=== PATIENT | female | born 1990 | race Caucasian/White ===

== ENCOUNTER 2022-08-04 13:30 | Outpatient (CLI) | payer OTHER, SELFPAY | END 2022-08-04 13:31 | disposition home or self-care (01) | PROVIDERS: PCP Family Medicine; Visit Provider Registered Nurse | DX: R07.89 Other chest pain (principal) | CPT/HCPCS: 84484; 85379 ==

== ENCOUNTER 2024-11-07 23:35 | Emergency (ER) | payer OTHER, SELFPAY ==
--- OUTSIDE RECORDS SUMMARY | 2024-11-07 23:38 | XMS_ITS | Clinical Summary ---
Author Organization [facility] [facility] Address [address] [place] [address] Care Team Providers Care Supervisor Of Operations Name Role Phone Fany Hamilton Primary Care Provider [phone] Dawood Stinson MD Unavailable [phone] Allergies No known active allergies Medications blood-glucose meterIndication s:Type 2 diabetes mellitus without complication, without long-term current use of insulin (HC) As directed. Dispense meter, test strips, lancets covered by pt ins. E11.9 NIDDM type II - Test 1 time/day 1 Each 09/07/19 23 Active blood sugar diagnostic (Blood Glucose Test) stripIndication s:Type 2 diabetes mellitus without complication, without long-term current use of insulin (HC) Test 1 times per day. 100 Each 09/08/19 23 Active CPAPIndications :ARMANDO (obstructive sleep apnea) CPAP machine for home use at pressure 5-15cmw, nasal mask x1/3month with nasal cushion x2/mo 1 Each 11 05/01/19 24 Active ferrous sulfate 325 mg delayed release tabletIndicatio ns:Iron deficiency anemia, unspecified iron deficiency anemia type Take 1 Tablet (325 mg) by mouth once daily with a meal. 90 Tablet 3 04/22/20 24 Active venlafaxine 75 mg cp24 Extended-Releas e capsuleIndicati ons:Generalized anxiety disorder,Curren t moderate episode of major depressive disorder without prior episode (HC) Take 1 Capsule (75 mg) by mouth once daily with a meal. 90 Capsule 3 08/06/19 25 Active pen tirzepatide 10 mg/0.5 mL penIndications: Type 2 diabetes mellitus without complication, without long-term current use of insulin (HC) Inject 10 mg subcutaneous once weekly. Start after 4 weeks of 7.5 mg dosing, continue as maintenance dose 6 mL 1 09/27/19 25 Active metFORMIN 1,000 mg tabletIndicatio ns:Type 2 diabetes mellitus without complication, without long-term current use of insulin (HC) Take 1 Tablet (1,000 mg) by mouth once daily with a meal. 180 Tablet 1 09/27/19 25 Active clotrimazole-be tamethasone 1%-0.05% creamIndication s:Intertriginou s candidiasis Apply topically to affected area(s) two times daily. 45 g 1 09/27/19 25 Active levothyroxine (SYNTHROID) 200 mcg tabletIndicatio ns:Hypothyroidi sm due to Josue's thyroiditis Take 1 Tablet (200 mcg) by mouth once daily. 90 Tablet 2 11/05/19 25 Active norgestimate-et hinyl estradiol (0.25-35 mg-mcg) (ORTHO-CYCLEN) 0.25-0.035 mg tabletIndicatio ns:Menorrhagia with regular cycle Take 1 Tablet by mouth once daily. 84 Tablet 3 11/07/19 25 Active cephalexin 500 mg capsuleIndicati ons:Cellulitis of left abdominal wall Take 2 Capsules (1,000 mg) by mouth two times daily for 7 days. 28 Capsule 11/07/19 25 025 Active lancetsIndicati ons:Type 2 diabetes mellitus without complication, without long-term current use of insulin (HC) As directed. Test 1 times per day. 100 Each 09/08/19 23 025 Discontinu ed(*Med complete/R egimen complete/L evel of care change) gabapentin (NEURONTIN) 600 mg tabletIndicatio ns:Peripheral sensory neuropathy Take 1 Tablet (600 mg) by mouth three times daily. 270 Tablet 1 04/14/20 24 025 Discontinu ed(*Med complete/R egimen complete/L evel of care change) cholecalciferol (VITAMIN D3) 2,000 unit capsuleIndicati ons:vitamin D deficiency Take 2,000 units by mouth once daily. 025 Discontinu ed(*Med complete/R egimen complete/L evel of care change) hydrOXYzine pamoate (VISTARIL) 25 mg capsuleIndicati ons:Generalized anxiety disorder Take 2 Capsules (50 mg) by mouth at bedtime if needed for Anxiety (sleep). 07/05/19 25 025 Discontinu ed(*Med complete/R egimen complete/L evel of care change) tirzepatide 7.5 mg/0.5 mL penIndications: Type 2 diabetes mellitus without complication, without long-term current use of insulin (HC) Inject 7.5 mg subcutaneous once weekly for 4 doses. Start after 4 weeks of 5 mg dosing 2 mL 09/27/19 25 025 tirzepatide 5 mg/0.5 mL penIndications: Type 2 diabetes mellitus without complication, without long-term current use of insulin (HC) Inject 5 mg subcutaneous once weekly for 4 doses. 2 mL 09/27/19 25 025 fluconazole 150 mg tabletIndicatio ns:Intertrigino us candidiasis Take 1 tablet every 3 days for total of 3 doses 3 Tablet 09/27/19 25 025 Discontinu ed(*Med complete/R egimen complete/L evel of care change) levothyroxine 175 mcg tabletIndicatio ns:Hypothyroidi sm due to Josue's thyroiditis Take 1 Tablet (175 mcg) by mouth before breakfast. 90 Tablet 3 09/30/19 25 025 Discontinu ed(*Medica tion adjustment ) Active Problems Problem Noted Date Diagnosed Date MDD (major depressive disorder), single episode, severe 07/08/2024 Current moderate episode of major depressive disorder without prior episode 07/02/2024 Vitamin D deficiency 06/27/2024 Peripheral sensory neuropathy 01/10/2024 Pap smear for cervical cancer screening 01/12/20 23 Overview (01/11/2023): 12/2022 NIL/HPV Negative Plan: Pap and HPV due 12/2027 Morbid obesity with BMI of 45.0-49.9, adult 12/22 Type 2 diabetes mellitus wit hout complication, without long-term current use of insulin 01/04/2023 Generalized anxiety disorder 10/13/2019 ARMANDO 03/21/2018 AHI- 24.6 10/13/2019 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 Family history of early CAD 12/09/2013 Resolved Problems Problem Noted Date Diagnosed Date Resolved Date Hyperprolactinemia 06/27/2024 Morbid obesity 07/05/2021 10/08/2023 Encounters Date Type Department Care Team Description 11/06/2024 9:30 AM CDT Office Visit [facility] [address] [place] [address] Fany Hamilton PA Menses Problem (Very painful periods lately-discuss antidepressant and if is causes difficulty getting -possible rash from mounjaro injection) 11/06/2024 Travel 11/04/2024 9:15 AM CDT Office Visit [facility] [address] [address] Dawood Stinson MD 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) 11/04/2024 Travel 11/02/2024 Travel 10/30/2024 Travel 10/16/2024 8:46 AM CDT - 10/16/2024 11:59 PM CDT Hospital Encounter [facility] [address] [place] [address] 10/16/2024 Travel 10/15/2024 8:42 AM CDT - 10/15/2024 11:59 PM CDT Hospital Encounter [facility] [address] [place] [address] 10/14/2024 8:44 AM CDT - 10/14/2024 11:59 PM CDT Hospital Encounter [facility] [address] [place] [address] 10/14/2024 Travel 10/09/2024 8:45 AM CDT - 10/09/2024 11:59 PM CDT Hospital Encounter [facility] [address] [place] [address] 10/09/2024 Travel 10/08/2024 8:33 AM CDT - 10/08/2024 11:59 PM CDT Hospital Encounter [facility] [place] [address] 10/07/2024 8:41 AM CDT - 10/07/2024 11:59 PM CDT Hospital Encounter [facility] [address] [place] [address] 10/07/2024 Travel 10/02/2024 9:00 AM CDT - 10/02/2024 11:59 PM CDT Hospital Encounter [facility] [place] [address] 10/02/2024 Travel 10/01/2024 9:00 AM CDT - 10/01/2024 11:59 PM CDT Hospital Encounter [facility] [place] [address] 09/30/2024 8:30 AM CDT - 09/30/2024 11:59 PM CDT Hospital Encounter [facility] [place] [address] 09/30/2024 Travel 09/29/2024 Telephone [facility] [address] [place] [address] Fany Hamilton PA Prior Authorization (tirzepatide 5 mg/0.5 mL pen (APPROVED 08/30/2024 - 09/29/2025)) 09/26/2024 7:30 AM CDT Office Visit [facility] [address] [place] [address] Fany Hamilton PA Diabetes (And A1c) 09/26/2024 Travel 09/25/2024 8:36 AM CDT - 09/25/2024 11:59 PM CDT Hospital Encounter [facility] [place] [address] 09/24/2024 8:44 AM CDT - 09/24/2024 11:59 PM CDT Hospital [facility]counter [facility] [address] [facility] [place] [address] 09/24/2024 Travel 09/23/2024 8:35 AM CDT - 09/23/2024 11:59 PM CDT Hospital [facility]counter [facility] [address] [facility] [place] [address] 09/23/2024 Nurse Triage [facility] [address] [place] [address] Fany Hamilton PA Rash 09/23/2024 Travel 09/18/2024 8:31 AM CDT - 09/18/2024 11:59 PM CDT Hospital Encounter [facility] 200 [facility] [place] [address] 09/18/2024 Travel 09/18/2024 Refill [facility] [address] [place] [address] Fany Hamilton PA Refill Request (Ozempic) 09/17/2024 8:40 AM CDT - 09/17/2024 11:59 PM CDT Hospital Encounter [facility] [address] [facility] [address] 09/16/2024 8:32 AM CDT - 09/16/2024 11:59 PM CDT Hospital Encounter [facility] [address] [facility] [place] [address] 09/16/2024 Travel 09/11/2024 8:31 AM CDT - 09/11/2024 11:59 PM CDT Hospital Encounter [facility] [address] 09/11/2024 Travel 09/10/2024 8:39 AM CDT - 09/10/2024 11:59 PM CDT Hospital Encounter [facility] [address] [facility] [place] [address] 09/09/2024 8:27 AM CDT - 09/09/2024 11:59 PM CDT Hospital Encounter [facility] 200 [facility] [place] [address] 09/09/2024 Travel 09/04/2024 8:42 AM CDT - 09/04/2024 11:59 PM CDT Hospital Encounter [facility] [address] [facility] [place] [address] 09/04/2024 Travel 09/03/2024 8:29 AM CDT - 09/03/2024 11:59 PM CDT Hospital Encounter [facility] [address] [facility] [place] [address] 09/02/2024 8:42 AM CDT - 09/02/2024 11:59 PM CDT Hospital Encounter [facility] [address] [facility] [place] [address] 09/02/2024 Travel 08/28/2024 8:27 AM CDT - 08/28/2024 11:59 PM CDT Hospital Encounter [facility] [address] [facility] [place] [address] 08/28/2024 Travel 08/27/2024 8:40 AM CDT - 08/27/2024 11:59 PM CDT Hospital Encounter [facility] [address] [facility] [place] [address] 08/26/2024 8:45 AM CDT - 08/26/2024 11:59 PM CDT Hospital Encounter [facility] [address] [facility] [address] 08/26/2024 Travel 08/25/2024 3:45 PM CDT Orders Only [facility] [address] [place] [address] Lab 08/24/2024 Travel 08/21/2024 8:44 AM CDT - 08/21/2024 11:59 PM CDT Hospital Encounter [facility] [address] [facility] [place] [address] 08/21/2024 Travel 08/20/2024 11:45 AM CDT - 08/20/2024 11:59 PM CDT Hospital Encounter [facility] [address] [place] [address] 08/20/2024 8:43 AM CDT - 08/20/2024 11:44 AM CDT Hospital Encounter [facility] [address] [place] [address] 08/19/2024 8:36 AM CDT - 08/19/2024 11:59 PM CDT Hospital Encounter [facility] [address] [facility] [place] [address] 08/19/2024 Travel 08/17/2024 Travel 08/17/[address] [address] Fany Hamilton PA Refill Request (Ozempic) 08/14/2024 8:38 AM CDT - 08/14/2024 11:59 PM CDT Hospital Encounter [facility] [address] [place] [address] 08/14/2024 Travel 08/13/2024 9:00 AM CDT - 08/13/2024 11:59 PM CDT Hospital Encounter [facility] [address] [place] [address] 08/12/2024 8:38 AM CDT - 08/12/2024 11:59 PM CDT Hospital Encounter [facility] [address] [place] [address] 08/12/2024 Travel from Last 3 Months Immunizations Immunization Administration Dates Next Due COVID-19 vaccine (Moderna 100mcg/0.5mL) PF, MDV 06/30/2020,06/02/2020 COVID-19 vaccine (Moderna Mic cassandra 50mcg/0.25mL) PF, MDV 03/22/2021 COVID-19 vaccine (Pfizer-Bio NTech 30mcg/0.3mL) 12YO+ BIVALENT PF, MDV 04/27/2022 DTP 03/03/1993, 2,1991,1990 HIB PRP-T (ActHIB,Hiberix) 05/20/1992,1991 ,1991 Hepatitis B (Adult) 12/18/2022 Hepatitis B (Peds) 08/29/1996,08/01/1996 Hepatitis B, Unspecified 08/29/1996,08/01/1996 Influenza Virus, Unspecified 03/22/2021 Influenza, IIV4 04/27/2022,03/22/2021,12/27/2018 MMR 05/20/1992 Oral Polio Vaccine 03/03/1993,1991, 991 Pneumococcal Conj 20-valent (Prevnar 20) 12/18/2022 Tdap 10/13/2019 Family History Medical History Relation Name Comments Hypertension Father Diabetes Maternal Grandmother Thyroid Disease Maternal Grandmother Thyroid Disease Mother Relation Name Status Comments Father Maternal Grandmother Mother Social History Tobacco Use Types Packs/Day Years Used Date Smoking Tobacco: Never Passive Smoke Exposure: Never Smokeless Tobacco: Never Tobacco Cessation:Counseling Given: Yes Alcohol Use Standard Drinks/Week Comments Not Currently 0 (1 standard drink = 0.6 oz pur e alcohol) occ PHQ-2 Answer Date Recorded PHQ-2 TOTAL SCORE 2 10/16/2024 Social Connections Answer Date Recorded Do you often feel lonely or isolated from those around you? 4 07/02/2024 Alcohol Use Answer Date Recorded How often do you have a drink containing alcohol ? 1 01/12/2022 How many drinks containing a lcohol do you have on a typical day when you are drinking? 0 01/12/2022 How often do you have five or more drinks on one occasion? 1 01/12/2022 Financial Resource Strain Answer Date R ecorded Difficulty of Paying Living Expenses 2 06/26/2024 Difficulty of Paying Living Expenses 1 06/26/2024 Food Insecurity Answer Date Recorded Do you worry your food will run out before you are able to buy more? 1 07/02/2024 Transportation Needs Answer Date Record ed Does lack of transportation keep you from medica l appointments? 1 07/02/2024 Does lack of transportation keep you from work, meetings or getting things that you need? 1 07/02/2024 Housing Stability Answer Date Recorded What is your housing situation today? 1 07/02/2024 Interpersonal Safety Answer Date Record ed Are you being hit, kicked, p ushed or yelled at (see row info)? No 07/02/2024 Interpersonal Safety Abuse 12 - 18 Not on file 07/02/2024 Interpersonal Safety Ambulatory Vulnerability No t on file 07/02/2024 Utilities Answer Date Recorded Do you have trouble paying f or utilities (for example, heat, electricity, water, phone)? 1 07/02/2024 Comments No Sex and Gender Information Value Date Recorded Sex Assigned at Not on file Legal Sex Female 2:37 PM CDT Gender Identity Not on file Sexual Orientation Not on file Obstetrics History Para Term AB IAB SAB Ectopic Multiple Livin g Live Births 0 0 0 0 0 0 0 0 0 0 0 Last Filed Vital Signs Vital Sign Reading Time Taken Comments Blood Pressure 131/82 11/06/2024 9:27 AM CDT Pulse 81 11/06/2024 9:27 AM CDT Temperature 36.8 C (98.3 F) 07/17/2024 9:45 AM CDT Respiratory Rate 18 07/17/2024 9:45 AM CDT Oxygen Saturation 100% 11/06/2024 9:27 AM CDT Inhaled Oxygen Concentration - - Weight 129.7 kg (286 lb) 11/06/2024 9:27 AM CDT Height 170.2 cm (5' 7) 07/02/2024 10:13 AM CDT Body Mass Index 44.79 07/02/2024 10:13 AM CDT Plan of Treatment Upcoming Encounters Date Type Department Care Team (Late st Contact Info) Description 12/16/2024 4:00 PM CDT Orders Only [facility] [address] [place] [address] Lab, [place] 02/03/2025 3:55 PM CDT Office Visit [facility] [address] [address] [place] [address] [place], [place] [id number] Health Maintenance Due Date Last Done Comments COVID-19 vaccine series ( season) 2023 04/27/2022, 03/22/2021, 06/30/2020, Additional history exists Influenza Vaccine (#1) 2024 , 03/22/2021, 03/22/2021, Additional history exists BMI (ht and wt on same day) for age 18+ 01/07/2025 01/08/2024, 09/24/2023, 01/02/2023, Additional history exists Depression screening for age 12+ 10/16/2025 10/16/2024, 09/26/2024, 08/20/2024, Additional history exists Pap test for age 21-65 01/03/2028 , 01/02/2023, 10/13/2019 (Verified in Care Everywhere or Patient Record) Tetanus booster 10/12/2029 10/13/2019 Hepatitis B series for 19+ Completed 12/18, 08/29/1996, 08/29/1996, Additional history exists Pneumococcal series for age 6-49 Completed 12/19/19 23 HIV for age 15-65 Completed 01/02/2023 Hepatitis C screening for ag e 18-79 Completed 01/02/2023 Medical Devices Implanted Type Area General Pediatrician Device Identifier Shelf Expiration Date Model / Serial / Lot Kit Implnt Dx Knotless Fibertak - [id number] Implanted:Qty: 1 on 10/01/2023 by Dandy Arrieta DPM at [facility] Left: Ankle [employer] 07/22/2027 [id number] / / [id number] Description:Rep supply Kit Implnt Biocomposite Cc Ft W/Jumpstart Internalbrace - [id number] Implanted:Qty: 1 on 10/01/2023 by Dandy Arrieta DPM at [facility] Left: Ankle [employer] 12/21/2024 [id number] / / [id number] Procedures Procedure Name Priority Date/Time Associated Diagnosis Comments LIPID PANEL W REFLEX MEASURED LDL Routine 09/26/2024 8:07 AM CDT Type 2 diabetes mellitus without complication, without long-term current use of insulin (HC) TSH Routine 09/26/2024 8:07 AM CDT 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 T4,FREE Routine 09/26/2024 8:07 AM CDT 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 HEMOGLOBIN A1C MONITORING (POCT) Routine 09/26/2024 8:06 AM CDT Type 2 diabetes mellitus without complication, without long-term current use of insulin (HC) URINE ALBUMIN TO CREATININE RATIO, RANDOM Routine 09/26/2024 8:05 AM CDT Type 2 diabetes mellitus without complication, without long-term current use of insulin (HC) TSH Routine 08/25/2024 3:33 PM CDT 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 T4,FREE Routine 08/25/2024 3:33 PM CDT 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 T3,FREE Routine 08/25/2024 3:33 PM CDT 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 HPV HIGH RISK Routine 01/02/2023 3:55 PM CDT Screening for malignant neoplasm of cervix ANTI HIV 1/2 Routine 01/02/2023 3:44 PM CDT Encounter for screening for HIV ANTI HCV Routine 01/02/2023 3:44 PM CDT Need for hepatitis C screening test from Last 3 Months or Most Recently Relevant to Health Maintenance Results * (ABNORMAL) LIPID PANEL W REFLEX MEASURED LDL (09/26/2024 8:07 AM CDT) Pathologist [facility] CHOLESTEROL, TOTAL 217(H) <200 mg/dL [facility] HDL CHOLESTEROL 57 > OR = 50 mg/dL [facility] TRIGLYCERIDES 110 <150 mg/dL [facility] LDL-CHOLESTEROL 137(H) mg/dL (calc) [facility] Comment: Reference range: <100 Desirable range <100 mg/dL for primary prevention; <70 mg/dL for patients with CHD or diabetic patients with > or = 2 CHD risk factors. LDL-C is now calculated using the Sosa calculation, which is a validated novel method providing better accuracy than the Friedewald equation in the estimation of LDL-C. Sunil SS et al. VIDA. 2013;310(19): 4065-1005 (http://education.WearPoint/faq/CEH677) CHOL/HDLC RATIO 3.8 <5.0 (calc) [facility] NON HDL CHOLESTEROL 160(H) <130 mg/dL (calc) [facility] Comment: For patients with diabetes plus 1 major ASCVD risk factor, treating to a non-HDL-C goal of <100 mg/dL (LDL-C of <70 mg/dL) is considered a therapeutic option. Blood BLOOD SPECIMEN / Unknown 09/26/2024 8:07 AM CDT 09/26/2024 8:09 AM CDT Narrative [facility] - 09/27/2024 4:46 AM CDT FASTING:UNKNOWN FASTING: UNKNOWN Fany DEVI CHEMISTRY Final Resu lt [facility] [address] [place] [address], [facility] [address] [place] [address] * (ABNORMAL) TSH (09/26/2024 8:07 AM CDT) Only the most recent of2 resultswithin the time period is included. TSH 29.52(H) mIU/L [facility] is[facility]ra Gaspar Comment: Reference Range > or = 20 Years 0.40-4.50 Ranges First trimester 0.26-2.66 Second trimester 0.55-2.73 Third trimester 0.43-2.91 Blood BLOOD SPECIMEN / Unknown 09/26/2024 8:07 AM CDT 09/26/2024 8:09 AM CDT Narrative [facility] - 09/27/2024 4:46 AM CDT FASTING:UNKNOWN FASTING: UNKNOWN Fany DEVI CHEMISTRY Final Resu lt [facility] [address] [place] [address], [facility] [address] [place] [address] * T4,FREE (09/26/2024 8:07 AM CDT) Only the most recent of2 resultswithin the time period is included. T4, FREE 1.2 0.8 - 1.8 ng/dL [facility] Blood BLOOD SPECIMEN / Unknown 09/26/2024 8:07 AM CDT 09/26/2024 8:09 AM CDT Narrative [facility] - 09/27/2024 4:46 AM CDT FASTING:UNKNOWN FASTING: UNKNOWN Fany DEVI CHEMISTRY Final Resu lt [facility] [address] [place] [address], [facility] [address] [place] [address] * POCT Hemoglobin A1C Monitoring (09/26/2024 8:06 AM CDT) Pathologist [facility] POC HEMOGLOBIN A1C 5.6 <6.0 % OF TOTAL HGB [facility] Comment: Any point of care results exhibiting inconsistency with the patient's clinical status should be repeated using a different testing method. Blood BLOOD SPECIMEN / Unknown 09/26/2024 8:06 AM CDT 09/26/2024 8:07 AM CDT Fany DEVI CHEMISTRY Final Resu lt [facility] [address] [place] [address], [place] [phone] [facility] [address] [place] [address] * URINE ALBUMIN TO CREATININE RATIO, RANDOM (09/26/2024 8:05 AM CDT) ALB RAND URINE 13.5 mg/L 09/26/2024 4:53 PM CDT [facility] CREATININE,URIN E 1.27 g/L 09/26/2024 4:53 PM CDT [facility] ALBUMIN TO CREATININE RATIO,RAND UR 10.6 <30.0 mg/g creat 09/26/2024 4:53 PM CDT [facility] Urine URINE SPECIMEN / Unknown Non-Blood / Unknown 09/26/2024 8:05 AM CDT 09/26/2024 8:05 AM CDT Narrative [facility] - 09/26/2024 4:53 PM CDT If Albumin to Creatinine Ratio is elevated, consider the following: Elevations seen with incipient nephropathy associated with diabetes mellitus or hypertension. Stress, exercise,hematuria, and urinary tract infection may also produce elevated results. If clinically indicated, confirm with 24 Hour Albumin to Creatinine Ratio. Fany DEVI URINE Final Resu lt [facility] [address] [place] [address], [place] * T3,FREE (08/25/2024 3:33 PM CDT) T3, FREE 3.1 2.3 - 4.2 pg/mL [facility] Blood BLOOD SPECIMEN / Unknown 08/25/2024 3:33 PM CDT 08/25/2024 3:35 PM CDT Narrative [facility] - 08/26/2024 6:49 AM CDT FASTING:NO FASTING: NO Fany DEVI CHEMISTRY Final Resu lt Performing Organization Address [facility] Co de Phone Number [facility] [address] [place] [address], [place] [phone] [facility] [address] [place] [address] * HPV HIGH RISK (01/02/2023 3:55 PM CDT) TYPE 16 Negative Negative 01/04/2023 12:07 PM CDT [facility] TYPE 18 Negative Negative 01/04/2023 12:07 PM CDT [facility] OTHER HIGH RISK TYPES Negative Negative 01/04/2023 12:07 PM CDT [facility] Other (Cervical) Non-Blood / Unknown 01/02/2023 3:55 PM CDT 01/03/2023 9:03 AM CDT Narrative [facility] - 01/04/2023 12:07 PM CDT HPV types 16, 18, 31, 33, 35, 39, 45, 51, 52, 56, 58, 59, 66 and 68 DNA were undetectable or below the pre-set threshold. Methodology: Maxi Diamond 4800 HPV Test Fany DEVI MICROBIOLOGY Final Resu lt Performing Organization Address City/[facility] Co de Phone Number [facility] [address] [place] [address], [place] * ANTI HCV (01/02/2023 3:44 PM CDT) HEPATITIS C ANTIBODY Non-Reacti ve Non-React lala 01/03/2023 8:31 PM CDT [facility] Comment:Please note, per www .CDC.gov: If a patient is known to be at high risk of HCV infection, or is symptomatic, and the physician's suspicion of HCV infection is high, HCV RNA testing is often employed and is of diagnostic value, even after an initial negative anti-HCV test result. Blood BLOOD SPECIMEN / Unknown Venipuncture / Unknown 01/02/2023 3:44 PM CDT 01/02/2023 3:45 PM CDT us Fany DEVI SEND OUTS Final Resu lt [facility] SENDOUT INTERNAL ZIP [address] [place] [id number] * ANTI HIV 1/2 (01/02/2023 3:44 PM CDT) HIV-1/HIV-2 SCREEN Non-Reacti ve Non-Reacti ve 01/03/2023 9:31 PM CDT [facility] Comment:HIV-1 p24 and HIV-1/ HIV-2 Ab Not Detected. Blood BLOOD SPECIMEN / Unknown Venipuncture / Unknown 01/02/2023 3:44 PM CDT 01/02/2023 3:45 PM CDT us Fany DEVI SEND OUTS Final Resu lt Performing Organization Address City/[facility]/ZIP Co de Phone Number [facility] [address] [address], from Last 3 Months or Most Recently Relevant to Health Maintenance Insurance MEDICA CHOICE [facility] MEDICA GROUP PLAN HB ONLY Advance Directives * Full Code (Latest Code Status on File) Date Activated Date Inactivated Comments 10/01/2023 10:49 AM 10/01/2023 6:49 PM Question Answer Comments Code Status Discussion: Reviewed Preferences Care Teams Supervisor Of Operations Relationship Specialty Start Date End Date Fany Hamilton PA [address] [place] [address] PCP - General Physician Infrastructure Software Engineer 01/02/23 [place] [address] [place] [address] Endocrinology Endocrinology 11/04/24
--- OUTSIDE RECORDS SUMMARY | 2024-11-07 23:38 | XMS_ITS | Clinical Summary ---
Author Organization [facility] Address [address] [place] [address] Care Team Providers Care Subway Train Operator Name Role Phone Adelaida Downing PA-C Primary Care Provider Source Comments You are receiving this document as you are listed as the primary care provider,follow-up provider, or the patient has been referred to you for consultation.This is in compliance with the Medicare and[facility] EHR Incentive Program,which states Providers who transition their patient to another setting of careor provider of care or refers their patient to another provider of care shouldprovide summary care record for each transition of care or referral. [facility] Allergies No known active allergies Medications escitalopram oxalate (LEXAPRO) 20 MG tabletIndications:G AD (generalized anxiety disorder) (HRC) TAKE 1 TABLET BY MOUTH EVERY DAY 90 Tablet 3 2 Active levothyroxine (SYNTHROID) 200 MCG tabletIndications:A cquired hypothyroidism (HRC) TAKE 1 TABLET BY MOUTH EVERY DAY 90 Tablet 1 2 Active Active Problems Problem Noted Date Diagnosed Date Obesity 06/11/2020 ARMANDO (obstructive sleep apnea) 10/13/2019 XOCHILT (generalized anxiety disorder) 10/13/2019 Acquired hypothyroidism 08/26/2019 Immunizations Immunization Administration Dates Next Due DTP 03/03/1993, 2,1991,1990 HepB Ped/Adol (0-18 yrs) 08/29/1996,08/01/1996 Hib (ActHIB) 05/20/1992,1991,1991 Influenza IIV4 (Quadrivalent ) 0.5mL (57061) 03/22/2021,12/27/2018 Influenza, Unspecified Formulation 03/22/2021 MMR 05/20/1992 Moderna Monovalent 12+ 06/30/2020,06/02/2020 Moderna Monovalent Booster 12+ 03/22/2021 OPV, Trivalent (Orimune or tOPV) 03/03/1993,05/25,1991 Tdap 10/13/2019 Family History Medical History Relation Name Comments Hyperlipidemia Father Hypertension Father Thyroid Disorder Mother Diabetes, Type II Maternal Grandmother Thyroid Disorder Maternal Grandmother Relation Name Status Comments Father Alive Mother Alive Maternal Grandfather Maternal Grandmother Paternal Grandfather Alive Paternal Grandmother Alive Sister Alive Social History Tobacco Use Types Packs/Day Years Used Date Smoking Tobacco: Never Smokeless Tobacco: Never Alcohol Use Standard Drinks/Week Comments Yes 0 (1 standard drink = 0.6 oz pur e alcohol) special occasion PHQ-2 Answer Date Recorded PHQ-2 Score 0 03/25/2021 Comments No Sex and Gender Information Value Date Recorded Sex Assigned at Not on file Legal Sex Female 4:37 AM CDT Gender Identity Not on file Sexual Orientation Not on file Last Filed Vital Signs Vital Sign Reading Time Taken Comments Blood Pressure 133/86 05/02/2021 3:24 PM RECREATIONAL PROGRAMS DIRECTOR Pulse 88 05/02/2021 3:24 PM RECREATIONAL PROGRAMS DIRECTOR Temperature 36.6 C (97.8 F) 05/02/2021 3:04 PM RECREATIONAL PROGRAMS DIRECTOR Respiratory Rate 14 05/02/2021 3:04 PM RECREATIONAL PROGRAMS DIRECTOR Oxygen Saturation - - Inhaled Oxygen Concentration - - Weight 138.9 kg (306 lb 2 oz) 05/02/2021 3:04 PM RECREATIONAL PROGRAMS DIRECTOR Height 170.2 cm (5' 7) 05/02/2021 3:04 PM RECREATIONAL PROGRAMS DIRECTOR Body Mass Index 47.95 05/02/2021 3:04 PM RECREATIONAL PROGRAMS DIRECTOR Plan of Treatment Health Maintenance Due Date Last Done Comments Hep C Screening (Preventive Services) 1991 IPV (Polio) Vaccine (4 of 4 - 4-dose series) 1995 03/03/1993, 1991, 1991 HepB Vaccine (3) 11/21/1996 08/29/1996, 08/01/1996 Adult Preventive Visit 10/12/2021 10/13/2019 Cervical Cancer Screening 10/12/2022 10/13/2019 COVID-19 Vaccine ( season) 2023 03/22/2021, 06/30/2020, 06/02/2020 Influenza Vaccine (#1) 2024 , 03/22/2021, 12/27/2018 DTaP/Tdap/Td Vaccine (6 - Tdap) 10/12/2029 10/13/2019, 03/03/1993, 1991, Additional history exists Zoster/Shingles Vaccine (1 of 2) 2041 Hib Vaccine Completed 05/20/1992, 05/25, 1991 HIV Screening (Preventive Services) Completed 06/10/2020 HPV Vaccine Aged Out No longer eligi ble based on patient's age to complete this topic HepA Vaccine Aged Out No longer eligi ble based on patient's age to complete this topic MCV4 Vaccine Aged Out No longer eligi ble based on patient's age to complete this topic Meningococcal B Vaccine Aged Out No l onger eligible based on patient's age to complete this topic Pneumococcal Vaccine Aged Out No long er eligible based on patient's age to complete this topic Procedures Procedure Name Priority Date/Time Associated Diagnosis Comments HIV 1/2 AG/AB 4TH GEN Routine 06/10/2020 5:14 PM RECREATIONAL PROGRAMS DIRECTOR Screening for HIV (human immunodeficiency virus) Screening for STDs (sexually transmitted diseases) CYTOLOGY (PAP) Routine 10/13/2019 11:28 AM CDT Screening for malignant neoplasm of cervix from Last 3 Months or Most Recently Relevant to Health Maintenance Results * HIV 1/2 Ag/Ab 4th Generation (06/10/2020 5:14 PM RECREATIONAL PROGRAMS DIRECTOR) HIV 1/2 Antigen/Anti body (4th generation) Negative (Non Reactive) Negative (Non Reactive) 06/10/2020 10:00 PM RECREATIONAL PROGRAMS DIRECTOR [facility] Comment:HIV-1 p24 Antigen an d HIV-1/HIV-2 Antibody not detected Blood Venipuncture / Unknown 06/10/2020 5:14 PM RECREATIONAL PROGRAMS DIRECTOR 06/10/2020 5:14 PM RECREATIONAL PROGRAMS DIRECTOR us Adelaida Downing PA-C LAB_1 [facility] [address] [place] [address], [facility] [phone] * PAP Test (10/13/2019 11:28 AM CDT) Case Report Pap Case: [id number] Authorizing Provider: Adelaida Downing PA-C Collected: 10/13/2019 11:28 AM Ordering Location: [facility] Received: 10/13/2019 11:50 AM Practice First Screen: Laly Hernandez Specimen: Pap Test, Routine, Cervix/Endocervix 10/21/2019 8:04 AM [facility] Pap Specimen Adequacy Satisfactory for evaluation, endocervical/pierce sformation zone component present. 10/21/2019 8:04 AM [facility] Pap Interpretation Negative for intraepithelial lesion or malignancy (NILM). 10/21/2019 8:04 AM [facility] at 0804 CDT Pap Disclaimer The Pap test is a screening test designed to aid in the detection of cervical cancer and its precursor lesions. It is not a diagnostic procedure and should not be used as the sole means of detecting cervical cancer. Both false-positive and false-negative results may occur. 10/21/2019 8:04 AM [facility] Gross Description The specimen is received in SurePath fixative and properly labeled. 1 Pap-stained SurePath slide is prepared. 10/21/2019 8:04 AM [facility] Embedded Images 0 8:04 AM [facility] Other Specimen Type ENTIRE ENDOCERVIX / Unknown 10/13/2019 11:28 AM CDT 10/13/2019 11:50 AM CDT Comment:LMP: Patient's last menstrual period was 09/22/2019. us Adelaida Downing PA-C [place] [address], [facility] [phone] from Last 3 Months or Most Recently Relevant to Health Maintenance Insurance MEDICA CHOICE Care Teams Subway Train Operator Relationship Specialty Start Date End Date Adelaida Downing PA-C [address] [place] [address] PCP - General Physician Sheet Metal Supervisor 08/26/19
--- OUTSIDE RECORDS SUMMARY | 2024-11-07 23:38 | XMS_ITS | Patient Health Record ---
Author Organization [facility]ITO gautam Address [address] [place], [place] [id number] Care Team Providers Care Auto Transport Driver Name Role Phone Margy Hopson Primary Care Provider Allergies No Known Allergies Results Component Value Reference Range Notes T4, FREE Reviewed date:06/30/2024 10:02:12 AM Interpretation: Performing Lab:[facility] [place], [address] Moises Campos Notes/Report: T4, FREE 1.0 0.8-1.8 ng/dL T3, FREE Reviewed date:07/01/2024 09:35:37 AM Interpretation:4.5 Performing Lab:[facility], [facility], [address] [place], [address] Moises Campos Notes/Report: T3, FREE 4.5 2.3-4.2 pg/mL Reason For Referral No Information Medications Medication SIG (Take, Route, Frequency, Duration) Notes Start Date End Date Status Liothyronine Sodium 25 MCG TAKE 1 TABLET BY MOUTH TWICE A DAY ON EMPTY STOMACH Active Levothyroxine Sodium 175 MCG 1 tablet in the morning on an empty stomach Orally Once a day Active Dexcom G7 Sensor - change every 10 days for 90 days DX : E11.9 06/19/2023 Active Escitalopram Oxalate 20 MG 1 tablet Orally Once a day for 30 day(s) Active metFORMIN HCl 1000 MG 1 tablet with a me al Orally Twice a day Active Ozempic (1 MG/DOSE) 4 MG/3ML 2 MG SUBCUTANEOUS WEEKLY 28 DAYS for 28 days Active Social History Tobacco Use: Social History Observation Description Date Details (start date - stop date) Never Smoker NA - NA Smoking Question Answer Notes Status: Non-Smoker Problems Problem Type SNOMED Code ICD Code Onset Dates Problem Status W/U Status Risk Notes Problem 215490687 Morbid (severe) obesity due to excess calories (E66.01) Active confirmed Problem 86252092 Metrorrhagia (N92.1) Active confirmed Problem 173248154 Type 2 diabetes mellitus without complication, without long-term current use of insulin (E11.9) Active confirmed Problem Hypothyroidism, acquired (E03.9) Active confirmed Problem 711165742 Body mass index [BMI] 45.0-49.9, adult (Z68.42) Active confirmed Problem 26302818668182 History of vitamin D deficiency (Z86.39) Active confirmed Problem 698429710 History of non anemic vitamin B12 deficiency (Z86.39) Active confirmed Encounters Encounter Location Date Provider Diagnosis [facility] [address] [place], [place] [id number] 12/14/2023 Margy Souza Type 2 diabetes mellitus without complication, without long-term current use of insulin E11.9 [facility] [address] [place], [place] [id number] 04/29/2024 Margy Souza Hypothyroidism, acquired E03.9 [facility] [address] [place], [place] [id number] 04/29/2024 Margy [facility] [address] [place], [place] [id number] 12/09/2023 Margy [facility] [address] [place], [place] [id number] 03/02/2024 Margy [facility] [address] [place], [place] [id number] 04/20/2024 Margy [facility] [address] [place], [place] [id number] 05/10/2024 Margy [facility] [address] [place], [place] [id number] 05/13/2024 Margy [facility] [address] [place], [place] [id number] 05/13/2024 Margy [facility] [address] [facility] [place] [id number] 05/13/2024 Margy [facility] [address] [facility], [place] [id number] 05/18/2024 Margy [facility] [address] [facility], [place] [id number] 05/19/2024 Margy [facility] [address] [facility], [place] [id number] 05/19/2024 Margy [facility] [address] [facility] [id number] 05/19/2024 Marg[facility] [address] [facility] [id number] 05/19/2024 Margy Souza [facility] [address] [facility], [place] [id number] 05/20/2024 Margy [facility] [address] [facility], [place] [id number] 05/21/2024 Margy Souza [facility] [address] [facility], [place] [id number] 05/27/2024 Margy Souza [facility] [address] [facility], [place] [id number] 06/17/2024 Margy Souza [facility] [address] [facility], [place] [id number] 06/29/2024 Margy Souza [facility] [address] [facility], [place] [id number] 06/29/2024 Margy Souza [facility] [address] [facility], [place] [id number] 07/01/2024 Margy Souza [facility] [address] [facility], [place] [id number] 07/01/2024 Margy Souza Assessments Encounter Date Diagnosis (ICD Code) Assessment Notes Treatment Notes Treatment Clinical Notes Section Notes 04/29/2024 Hypothyroidism, acquired (ICD-10 - E03.9) 12/14/2023 Type 2 diabetes mellitus without complication, without long-term current use of insulin (ICD-10 - E11.9) Plan Of Treatment Future Test Test Name Order Date T3, FREE 04/29/2024 T4, FREE 04/29/2024 Insurance Providers Payer Name Payer Address Payer Phone Subscriber Number Group Number Insured Name Patient Relationship to Insured Coverage Start Date Coverage End Date [employer] - [employer] [address] [address] [place] [id number] Sonia Espinoza Self - patient is the insured Medical (General) History Surgical History Surgery Date(Month/Year) Tonsils 1998
[2024-11-07 23:39] VITALS: BP 138/91; PULSE 94; RESP 16; TEMP 37.2; O2SAT 97; BMI 45.0
--- NOTE | 2024-11-07 23:50 | ED.ALLEREA ---
HPI - Allergic Reaction General Time Seen by Provider: 23:50 Date Seen: 11/07/24 Chief complaint: Allergic Reaction Stated complaint: allergic reaction to meds Time Seen by Provider: 11/07/24 23:50 Source: patient Mode of arrival: ambulatory Limitations: no limitations History of Present Illness HPI narrative: 34-year-old female who comes in today with concern for allergic reaction. Patient recently started Munjaro. Patient noted after the last time she took her injections she developed an itchy rash around the site. Denies cough, breathing difficulty, other rash or hives. Took initial doses majora without difficulty. She was started on antibiotic prior primary care provider for this. Related Data Home Medications ?Medication ?Instructions ?Recorded ?Confirmed escitalopram oxalate 20 mg tablet 20 mg PO 04/20/22 08/04/22 levothyroxine 175 mcg tablet 175 mcg PO 04/20/22 08/04/22 liothyronine 25 mcg tablet 25 mcg PO DAILY 08/04/22 08/04/22 Previous Rx's ?Medication ?Instructions ?Recorded triamcinolone acetonide 0.5 % 1 applic topical BID #15 grams 11/08/24 topical cream Allergies Allergy/AdvReac Type Severity Reaction Status Date / Time No Known Drug Allergies Allergy Verified 08/04/22 13:02 [facility] PFS Social History Smoking Status: Never smoker Exam Narrative: Exam Narrative: General: well nourished , NAD Head: Atraumatic and normocephalic ENT: External ears and external nose are normal Eyes: Conjunctiva clear, pupils are equal reactive, external ocular motions are intact Neck: Full spontaneous range of motion of the neck Lungs: No respiratory distress Musculoskeletal: No tenderness or deformity Neurologic: No gross focal neurologic deficits Skin: Two 4 cm areas of irregular erythema on the abdomen, no warmth, no induration, erythema is somewhat patchy, and the areas are excoriated Psych: Mood and affect are appropriate Const: Vital Signs, click to edit/add: Vital Signs - 24 hr 11/07/24 23:39 Temperature 98.9 F Pulse Rate [Left P ulse Oximeter] 94 Respiratory Rate 16 Blood Pressure [Ri ght Upper Arm] 138/91 H Pulse Oximetry 97 Oxygen Delivery Me thod Room Air Course Course ED Course: Patient seen examined, presents today with concern for swelling at the site of her Munjaro injection site. She has 2 areas on her abdomen from her to most recent injections, these are very itchy. On exam, irregularly bordered erythematous areas on the abdomen with no induration, no warmth recall, excoriations. This appears most consistent with a localized skin reaction to the injection. No systemic signs of allergy. Patient can take Benadryl for itching and will be started on a topical steroid. She can take her next dose and if she develops a similar rash, should talk to her doctor about switching medications. Vital Signs Vital signs: Initial Vital Signs Temperature 98.9 F 11/07/24 23:39 Temperature Source Temporal Artery Scan 11/07/24 23:39 Pulse Rate 94 11/07/24 23:39 Pulse Rhythm Regular 11/07/24 23:39 Respiratory Rate 16 11/07/24 23:39 Blood Pressure 138/91 H 11/07/24 23:39 Blood Pressure Mean 106 H 11/07/24 23:39 Blood Pressure Position Sitting 11/07/24 23:39 Pulse Oximetry 97 11/07/24 23:39 Oxygen Delivery Method Room Air 11/07/24 23:39 Vital Signs Temperature 98.9 F 11/07/24 23:39 Pulse Rate 94 11/07/24 23:39 Respiratory Rate 16 11/07/24 23:39 Blood Pressure 138/91 H 11/07/24 23:39 Pulse Oximetry 97 11/07/24 23:39 Oxygen Delivery Method Room Air 11/07/24 23:39 Temperature 98.9 F 11/07/24 23:39 Pulse Rate 94 11/07/24 23:39 Respiratory Rate 16 11/07/24 23:39 Blood Pressure 138/91 H 11/07/24 23:39 Pulse Oximetry 97 11/07/24 23:39 Oxygen Delivery Method Room Air 11/07/24 23:39 Discharge Plan Discharge Clinical Impression: Allergic reaction, Injection site reaction Patient Disposition: Home, Self-Care Condition: Stable Instructions: General Allergic Reaction (ED) Additional Instructions: Take Benadryl as needed for itching Apply steroid cream to the area as directed Take your next injection. If you develop a similar rash, talk to your regular doctor about switching medications Activity Level: Activity as Tolerated Discharge Diet: Regular Prescriptions: New triamcinolone acetonide 0.5 % cream 1 applic topical BID Qty: 15 0RF No Action escitalopram oxalate 20 mg tablet 20 mg PO Patient Comments: TAKE 1 TABLET BY MOUTH EVERY MORNING levothyroxine 175 mcg tablet 175 mcg PO Patient Comments: TAKE 1 TABLET (175 MCG) BY MOUTH ONCE DAILY. liothyronine 25 mcg tablet 25 mcg PO DAILY Follow Up/Referrals: Rosetta Madrigal MD [Primary Care Provider, Obstetrics] Stand Alone Forms: [facility] Info Instructions
--- OUTSIDE RECORDS SUMMARY | 2024-11-08 00:27 | XMS_ITS | Clinical Summary ---
Author Organization [facility] Address [address] [place] [address] Care Team Providers Care Media Marketing Director Name Role Phone Fany Hamilton Primary Care Provider [phone] Dawood Stinson MD Unavailable Allergies No known active allergies Medications blood-glucose [...] Description 11/06/2024 9:30 AM CDT Office Visit [facility] [address] [place] [address] Fany Hamilton PA Menses Problem (Very painful periods lately-discuss antidepressant and if is causes difficulty getting -possible rash from mounjaro injection) 11/06/2024 Travel 11/04/2024 9:15 AM CDT Office Visit [facility] [address] [address] Dawood Stinson MD 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) 11/04/2024 Travel 11/02/2024 Travel 10/30/2024 Travel 10/16/2024 8:46 AM CDT - 10/16/2024 11:59 PM CDT Hospital Encounter [facility] [address] [place] [address] 10/16/2024 Travel 10/15/2024 8:42 AM CDT - 10/15/2024 11:59 PM CDT Hospital Encounter [facility] [address] [place] [address] 10/14/2024 8:44 AM CDT - 10/14/2024 11:59 PM CDT Hospital Encounter [facility] [address] [place] [address] 10/14/2024 Travel 10/09/2024 8:45 AM CDT - 10/09/2024 11:59 PM CDT Hospital Encounter [facility] [address] [place] [address] 10/09/2024 Travel 10/08/2024 8:33 AM CDT - 10/08/2024 11:59 PM CDT Hospital Encounter [facility] [place] [address] 10/07/2024 8:41 AM CDT - 10/07/2024 11:59 PM CDT Hospital Encounter [facility] [address] [place] [address] 10/07/2024 Travel 10/02/2024 9:00 AM CDT - 10/02/2024 11:59 PM CDT Hospital Encounter [facility] [place] [address] 10/02/2024 Travel 10/01/2024 9:00 AM CDT - 10/01/2024 11:59 PM CDT Hospital Encounter [facility] [place] [address] 09/30/2024 8:30 AM CDT - 09/30/2024 11:59 PM CDT Hospital Encounter [facility] [place] [address] 09/30/2024 Travel 09/29/2024 Telephone [facility] [address] [place] [address] Fany Hamilton PA Prior Authorization (tirzepatide 5 mg/0.5 mL pen (APPROVED 08/30/2024 - 09/29/2025)) 09/26/2024 7:30 AM CDT Office Visit [facility] [address] [place] [address] Fany Hamilton PA Diabetes (And A1c) 09/26/2024 Travel 09/25/2024 8:36 AM CDT - 09/25/2024 11:59 PM CDT Hospital Encounter [facility] [place] [address] 09/24/2024 8:44 AM CDT - 09/24/2024 11:59 PM CDT Hospital Encounter [facility] 200 [facility] [place] [address] 09/24/2024 Travel 09/23/2024 8:35 AM CDT - 09/23/2024 11:59 PM CDT Hospital Encounter [facility] [place] [address] 09/23/2024 Nurse Triage [facility] [address] [place] [address] Fany Hamilton PA Rash 09/23/2024 Travel 09/18/2024 8:31 AM CDT - 09/18/2024 11:59 PM CDT Hospital Encounter [facility] 200 [place] [address] 09/18/2024 Travel 09/18/2024 Refill [facility] [address] [place] [address] Fany Hamilton PA Refill Request (Ozempic) 09/17/2024 8:40 AM CDT - 09/17/2024 11:59 PM CDT Hospital Encounter [facility] 200 [facility] [place] [address] 09/16/2024 8:32 AM CDT - 09/16/2024 11:59 PM CDT Hospital Encounter [facility] 200 [facility] [place] [address] 09/16/2024 Travel 09/11/2024 8:31 AM CDT - 09/11/2024 11:59 PM CDT Hospital [facility] [address] 09/11/2024 Travel 09/10/2024 8:39 AM CDT - 09/10/2024 11:59 PM CDT Hospital Encounter [facility] 200 [facility] [place] [address] 09/09/2024 8:27 AM CDT - 09/09/2024 11:59 PM CDT Hospital Encounter [facility] 200 [facility] [place] [address] 09/09/2024 Travel 09/04/2024 8:42 AM CDT - 09/04/2024 11:59 PM CDT Hospital Encounter [facility] 200 [facility] [place] [address] 09/04/2024 Travel 09/03/2024 8:29 AM CDT - 09/03/2024 11:59 PM CDT Hospital Encounter [facility] 200 [facility] [place] [address] 09/02/2024 8:42 AM CDT - 09/02/2024 11:59 PM CDT Hospital Encounter [facility] 200 [facility] [place] [address] 09/02/2024 Travel 08/28/2024 8:27 AM CDT - 08/28/2024 11:59 PM CDT Hospital Encounter [facility] 200 [facility] [place] [address] 08/28/2024 Travel 08/27/2024 8:40 AM CDT - 08/27/2024 11:59 PM CDT Hospital Encounter [facility] 200 [facility] [place] [address] 08/26/2024 8:45 AM CDT - 08/26/2024 11:59 PM CDT Hospital Encounter [facility] 200 [facility] [place] [address] 08/26/2024 Travel 08/25/2024 3:45 PM CDT Orders Only [facility] [address] [place] [address] Lab 08/24/2024 Travel 08/21/2024 8:44 AM CDT - 08/21/2024 11:59 PM CDT Hospital Encounter [facility] 200 [facility] [place] [address] 08/21/2024 Travel 08/20/2024 11:45 AM CDT - 08/20/2024 11:59 PM CDT Hospital Encounter [facility] [address] [place] [address] 08/20/2024 8:43 AM CDT - 08/20/2024 11:44 AM CDT Hospital Encounter [facility] [address] [place] [address] 08/19/2024 8:36 AM CDT - 08/19/2024 11:59 PM CDT Hospital Encounter [facility] 200 [facility] [place] [address] 08/19/2024 Travel 08/17/2024 Travel 08/17/[address] [address] Fany Hamilton PA Refill Request (Ozempic) 08/14/2024 8:38 AM CDT - 08/14/2024 11:59 PM CDT Hospital Encounter [facility] [address] [place] [address] 08/14/2024 Travel 08/13/2024 9:00 AM CDT - 08/13/2024 11:59 PM CDT Hospital Encounter [facility] [address] [place] [address] 08/12/2024 8:38 AM CDT - 08/12/2024 11:59 PM CDT Hospital Encounter [facility] [address] [place] [address] 08/12/2024 Travel from Last 3 Months Immunizations [...] Description 12/16/2024 4:00 PM CDT Orders Only [facility] [address] [place] [address] Lab, [place] 02/03/2025 3:55 PM CDT Office Visit [facility] [address] [address] [place] [address] [place], [place] [id number] Health Maintenance Due Date Last Done Comments [...] Completed 01/02/2023 Medical Devices Implanted Type Area Qm Consultant Device Identifier Shelf Expiration Date Model / Serial / Lot Kit Implnt Dx Knotless Fibertak - [id number] Implanted:Qty: 1 on 10/01/2023 by Dandy Arrieta DPM at [facility] Left: Ankle [employer] 07/22/2027 [id number] / / [id number] Description:Rep supply Kit Implnt Biocomposite Cc Ft W/Jumpstart Internalbrace - [id number] Implanted:Qty: 1 on 10/01/2023 by Dandy Arrieta DPM at [facility] Left: Ankle [employer] 12/21/2024 [id number] / / [id number] Procedures Procedure Name Priority Date/Time Associated Diagnosis [...] MEASURED LDL (09/26/2024 8:07 AM CDT) Pathologist [facility] CHOLESTEROL, TOTAL 217(H) <200 mg/dL [facility] HDL CHOLESTEROL 57 > OR = 50 mg/dL [facility] TRIGLYCERIDES 110 <150 mg/dL [facility] LDL-CHOLESTEROL 137(H) mg/dL (calc) [facility]ra Gaspar Comment: Reference range: <100 Desirable range <100 mg/dL for primary prevention; <70 mg/dL for patients with CHD or diabetic patients with > or = 2 CHD risk factors. LDL-C is now calculated using the Sosa calculation, which is a validated novel method providing better accuracy than the Friedewald equation in the estimation of LDL-C. Sunil SS et al. VIDA. 2013;310(19): 2291-5396 (http://education.Betabrand/faq/DNF807) CHOL/HDLC RATIO 3.8 <5.0 (calc) [facility] [facility] is[facility]ra Gaspar NON HDL CHOLESTEROL 160(H) <130 mg/dL (calc) [facility] isidra Gaspar Comment: For patients with diabetes plus 1 major ASCVD risk factor, treating to a non-HDL-C goal of <100 mg/dL (LDL-C of <70 mg/dL) is considered a therapeutic option. Blood BLOOD SPECIMEN / Unknown 09/26/2024 8:07 AM CDT 09/26/2024 8:09 AM CDT Narrative [facility] - 09/27/2024 4:46 AM CDT FASTING:UNKNOWN FASTING: UNKNOWN Fany DEVI CHEMISTRY Final Resu lt [facility] [address] [place] [address], [facility] [address] [place] [address] * (ABNORMAL) TSH (09/26/2024 8:07 AM CDT) Only the most recent of2 resultswithin the time period is included. TSH 29.52(H) mIU/L [facility] isidra Gaspar Comment: Reference Range > or = 20 Years 0.40-4.50 Ranges First trimester 0.26-2.66 Second trimester 0.55-2.73 Third trimester 0.43-2.91 Blood BLOOD SPECIMEN / Unknown 09/26/2024 8:07 AM CDT 09/26/2024 8:09 AM CDT Narrative [facility] - 09/27/2024 4:46 AM CDT FASTING:UNKNOWN FASTING: UNKNOWN Fany DEVI CHEMISTRY Final Resu lt [facility] [address] [place] [address], [facility] [address] [place] [address] * T4,FREE (09/26/2024 8:07 AM CDT) Only the most recent of2 resultswithin the time period is included. T4, FREE 1.2 0.8 - 1.8 ng/dL [facility] Blood BLOOD SPECIMEN / Unknown 09/26/2024 8:07 AM CDT 09/26/2024 8:09 AM CDT Narrative [facility] - 09/27/2024 4:46 AM CDT FASTING:UNKNOWN FASTING: UNKNOWN Fany DEVI CHEMISTRY Final Resu lt [facility] [address] [place] [address], [facility] [address] [place] [address] * POCT Hemoglobin A1C Monitoring (09/26/2024 8:06 AM CDT) Pathologist [facility] POC HEMOGLOBIN A1C 5.6 <6.0 % OF TOTAL HGB [facility] Comment: Any point of care results exhibiting inconsistency with the patient's clinical status should be repeated using a different testing method. Blood BLOOD SPECIMEN / Unknown 09/26/2024 8:06 AM CDT 09/26/2024 8:07 AM CDT Fany DEVI CHEMISTRY Final Resu lt [facility] [address] [place] [address], [place] [phone] [facility] [address] [place] [address] * URINE ALBUMIN TO CREATININE RATIO, RANDOM (09/26/2024 8:05 AM CDT) ALB RAND URINE 13.5 mg/L 09/26/2024 4:53 PM CDT [facility] CREATININE,URIN E 1.27 g/L 09/26/2024 4:53 PM CDT [facility] ALBUMIN TO CREATININE RATIO,RAND UR 10.6 <30.0 mg/g creat 09/26/2024 4:53 PM CDT [facility] Urine URINE SPECIMEN / Unknown Non-Blood / Unknown 09/26/2024 8:05 AM CDT 09/26/2024 8:05 AM CDT Narrative [facility] - 09/26/2024 4:53 PM CDT If Albumin to Creatinine Ratio is elevated, consider the following: Elevations seen with incipient nephropathy associated with diabetes mellitus or hypertension. Stress, exercise,hematuria, and urinary tract infection may also produce elevated results. If clinically indicated, confirm with 24 Hour Albumin to Creatinine Ratio. Fany DEVI URINE Final Resu lt [facility] [address] [place] [address], [place] * T3,FREE (08/25/2024 3:33 PM CDT) T3, FREE 3.1 2.3 - 4.2 pg/mL [facility] Blood BLOOD SPECIMEN / Unknown 08/25/2024 3:33 PM CDT 08/25/2024 3:35 PM CDT Narrative [facility] - 08/26/2024 6:49 AM CDT FASTING:NO FASTING: NO Fany DEVI CHEMISTRY Final Resu lt Performing Organization Address [facility] Co de Phone Number [phone] [facility] [address] [place] [address], [place] [phone] [facility] [place] [address] [place] [address] * HPV HIGH RISK (01/02/2023 3:55 PM CDT) TYPE 16 Negative Negative 01/04/2023 12:07 PM CDT [facility] TYPE 18 Negative Negative 01/04/2023 12:07 PM CDT [facility] OTHER HIGH RISK TYPES Negative Negative 01/04/2023 12:07 PM CDT [facility] Other (Cervical) Non-Blood / Unknown 01/02/2023 3:55 PM CDT 01/03/2023 9:03 AM CDT Narrative [facility] - 01/04/2023 12:07 PM CDT HPV types 16, 18, 31, 33, 35, 39, 45, 51, 52, 56, 58, 59, 66 and 68 DNA were undetectable or below the pre-set threshold. Methodology: Maxi Diamond 4800 HPV Test Fany DEVI MICROBIOLOGY Final Resu lt Performing Organization Address City/[facility] Co de Phone Number [facility] [address] [place] [address], [place] * ANTI HCV (01/02/2023 3:44 PM CDT) HEPATITIS C ANTIBODY Non-Reacti ve Non-React lala 01/03/2023 8:31 PM CDT [facility] Comment:Please note, per www .CDC.gov: If [...] Fany DEVI SEND OUTS Final Resu lt [facility] SENDOUT INTERNAL ZIP [address] [place] [address] * ANTI HIV 1/2 (01/02/2023 3:44 PM CDT) HIV-1/HIV-2 SCREEN Non-Reacti ve Non-Reacti ve 01/03/2023 9:31 PM CDT [facility] Comment:HIV-1 p24 and HIV-1/ HIV-2 Ab Not Detected. Blood BLOOD SPECIMEN / Unknown Venipuncture / Unknown 01/02/2023 3:44 PM CDT 01/02/2023 3:45 PM CDT us Fany DEVI SEND OUTS Final Resu lt Performing Organization Address City/[facility]/ZIP Co de Phone Number [facility] [address] [address], from Last 3 Months or Most Recently Relevant to Health Maintenance [place] [address] [facility] [place] [address] Advance Directives * Full Code (Latest Code Status on File) Date Activated Date Inactivated Comments 10/01/2023 10:49 AM 10/01/2023 6:49 PM Question Answer Comments Code Status Discussion: Reviewed Preferences Care Teams Media Marketing Director Relationship Specialty Start Date End Date Fany Hamilton PA [address] [place] [address] PCP - General Physician Doughnut Maker 01/02/23 [place] [address] [place] [address] Endocrinology Endocrinology 11/04/24
--- OUTSIDE RECORDS SUMMARY | 2024-11-08 00:27 | XMS_ITS | Clinical Summary ---
Author Organization [facility] Address [address] [place] [address] Care Team Providers Care Pizza Hut Assistant Name Role Phone Adelaida Downing PA-C Primary Care Provider Source Comments You are receiving this document as you are listed as the primary care provider,follow-up provider, or the patient has been referred to you for consultation.This is in compliance with the Medicare and[facility] EHR Incentive Program,which states Providers who transition their patient to another setting of careor provider of care or refers their patient to another provider of care shouldprovide summary care record for each transition of care or referral. [facility] Allergies No known active allergies Medications escitalopram [...] (ActHIB) 05/20/1992,1991,1991 Influenza IIV4 (Quadrivalent ) 0.5mL (64375) 03/22/2021,12/27/2018 Influenza, Unspecified Formulation 03/22/2021 MMR 05/20/1992 [...] Comments Blood Pressure 133/86 05/02/2021 3:24 PM PRINCIPAL ASSOCIATE Pulse 88 05/02/2021 3:24 PM PRINCIPAL ASSOCIATE Temperature 36.6 C (97.8 F) 05/02/2021 3:04 PM PRINCIPAL ASSOCIATE Respiratory Rate 14 05/02/2021 3:04 PM PRINCIPAL ASSOCIATE Oxygen Saturation - - Inhaled Oxygen Concentration - - Weight 138.9 kg (306 lb 2 oz) 05/02/2021 3:04 PM PRINCIPAL ASSOCIATE Height 170.2 cm (5' 7) 05/02/2021 3:04 PM PRINCIPAL ASSOCIATE Body Mass Index 47.95 05/02/2021 3:04 PM PRINCIPAL ASSOCIATE Plan of Treatment Health Maintenance Due Date [...] AG/AB 4TH GEN Routine 06/10/2020 5:14 PM PRINCIPAL ASSOCIATE Screening for HIV (human immunodeficiency virus) Screening for STDs (sexually transmitted diseases) CYTOLOGY (PAP) Routine 10/13/2019 11:28 AM CDT Screening for malignant neoplasm of cervix from Last 3 Months or Most Recently Relevant to Health Maintenance Results * HIV 1/2 Ag/Ab 4th Generation (06/10/2020 5:14 PM PRINCIPAL ASSOCIATE) HIV 1/2 Antigen/Anti body (4th generation) Negative (Non Reactive) Negative (Non Reactive) 06/10/2020 10:00 PM PRINCIPAL ASSOCIATE [facility] Comment:HIV-1 p24 Antigen an d HIV-1/HIV-2 Antibody not detected Blood Venipuncture / Unknown 06/10/2020 5:14 PM PRINCIPAL ASSOCIATE 06/10/2020 5:14 PM PRINCIPAL ASSOCIATE us Adelaida Downing PA-C LAB_1 Final Resul t [facility] [address] [place] [address], [facility] [phone] * PAP Test (10/13/2019 11:28 AM CDT) Case Report Pap Case: [id number] Authorizing Provider: Adelaida Downing PA-C Collected: 10/13/2019 11:28 AM Ordering Location: [facility] Received: 10/13/2019 11:50 AM Practice First Screen: Laly Hernandez Specimen: Pap Test, Routine, Cervix/Endocervix 10/21/2019 8:04 AM [facility] Pap Specimen Adequacy Satisfactory for evaluation, endocervical/pierce sformation zone component present. 10/21/2019 8:04 AM [facility] Pap Interpretation Negative for intraepithelial lesion or malignancy (NILM). 10/21/2019 8:04 AM [facility] at 0804 CDT Pap Disclaimer The Pap test is a screening test designed to aid in the detection of cervical cancer and its precursor lesions. It is not a diagnostic procedure and should not be used as the sole means of detecting cervical cancer. Both false-positive and false-negative results may occur. 10/21/2019 8:04 AM [facility] Gross Description The specimen is received in SurePath fixative and properly labeled. 1 Pap-stained SurePath slide is prepared. 10/21/2019 8:04 AM [facility] Embedded Images 0 8:04 AM [facility] Other Specimen Type ENTIRE ENDOCERVIX / Unknown 10/13/2019 11:28 AM CDT 10/13/2019 11:50 AM CDT Comment:LMP: Patient's last menstrual period was 09/22/2019. us Adelaida Downing PA-C LAB PATH[place] [address], [facility] [phone] from Last 3 Months or Most Recently Relevant to Health Maintenance Insurance [employer] Care Teams Pizza Hut Assistant Relationship Specialty Start Date End Date Adelaida Downing PA-C [address] [place] [address] PCP - General Physician Booth Usher 08/26/19
== END 2024-11-08 00:25 | disposition home or self-care (01) ==
LOC: ED 11-08 00:24
PROVIDERS: Emergency Provider Family Medicine; PCP Family Medicine
DX: R21 Rash and other nonspecific skin eruption (principal); T80.89XA Other complications following infusion, transfusion and therapeutic injection, initial encounter
CPT/HCPCS: 99283; A9270